=== PATIENT | male | born 1965 | race Caucasian/White ===

== ENCOUNTER 2019-07-21 15:55 | Emergency (ER) | payer BC ==
[2019-07-21] MEDS ORDERED: ONDANSETRON 4 MG/2 ML VIAL ONE (16:14)
[2019-07-21] MEDS ORDERED: KETOROLAC TROMETHAMINE 30 MG/1 ML VIAL ONE (16:14)
[2019-07-21 16:24] VITALS: BMI 36.9
[2019-07-21 16:28] VITALS: BP 128/81; PULSE 79; TEMP 98.4
[2019-07-21 16:28] LABS: BASO % 0.7 % (0-2.0); EOS % 1.1 % (0-4.5); HEMATOCRIT 49.5 % (35.4-49); HEMOGLOBIN 16.5 GM/dl (11.7-16.9); LYMPH % 17.6 % (8-40); MCH 30.9 pg (25.7-33.7); MCHC 33.3 g/dl (32.0-35.9); MEAN CELL VOLUME 92.6 fl (80-96); MEAN PLT VOLUME 7.5 fl (7.5-11.1); MONO % 8.5 % (3.8-10.2); NEUT % 72.1 % (42.8-82.8); PLATELET COUNT 279 K/MM3 (134-434); RBC 5.35 M/mm3 (4.00-5.60); WHITE BLOOD COUNT 9.2 K/mm3 (4.0-10.8)
[2019-07-21 16:49] LABS: ALBUMIN 4.2 g/dl (3.4-5.0); CALCIUM 8.4 mg/dl (8.5-10); CREATININE 1.4 mg/dl (0.55-1.3); POTASSIUM 3.8 mmol/L (3.5-5.1); TOT PROT 6.8 g/dl (6.4-8.2)
[2019-07-21] MEDS ORDERED: ONDANSETRON 4 MG/2 ML VIAL IVPUSH ONE (16:51)
[2019-07-21] MEDS ORDERED: KETOROLAC TROMETHAMINE 30 MG/1 ML VIAL IVPUSH ONE (16:51)
[2019-07-21] MEDS ORDERED: SODIUM CHLORIDE 0.9% 1000 ML INFUS.BAG IV ONE ×2 (16:51→17:06)
--- NOTE | 2019-07-21 16:51 | PDOC ---
Documentation entered by Bhavin Lobato SCRIBE, acting as scribe for Brisa Love DO. Brisa Love DO: This documentation has been prepared by the Luis Alfredo mcclellan Angel, SCRIBE, under my direction and personally reviewed by me in its entirety. I confirm that the documentation accurately reflects all work, treatment, procedures, and medical decision making performed by me. History of Present Illness - General Chief Complaint: Pain, Acute Stated Complaint: LEFT FLANK PAIN Time Seen by Provider: 07/21/19 16:08 History Source: Patient Exam Limitations: No Limitations - History of Present Illness Initial Comments: 07/21/19 16:55 The patient is a 53 year old male with a significant past medical history of kidney stones and Gallbladder removal who presents to the ED with left flank pain and hematuria. The patient states the left flank pain is frequent but this morning it flared up more than usual. The patient reports blood in the urine as well as nausea but no vomiting. The patient does not take any medication at home for the pain. The patient notes the pain has subsided in the ED after being given Toradol. Patient denies any chest pain, SOB, fever/chills or any other symptoms. Allergies: NKDA 07/21/19 16:55 Past History - Past Medical History Allergies/Adverse Reactions: Allergies Allergy/AdvReac Type Severity Reaction Status Date / Time No Known Allergies Allergy Verified 07/21/19 15:55 Home Medications: Ambulatory Orders Ibuprofen [Motrin -] 600 mg PO TID PRN #15 tablet 07/21/19 Oxycodone HCl/Acetaminophen [Percocet 5-325 mg Tablet] 1 tab PO Q6H PRN #6 tablet MDD 4 tabs per day 07/21/19 COPD: No Kidney Stones: Yes (7 YRS AGO) - Surgical History Cholecystectomy: Yes - Psycho Social/Smoking Cessation Hx Smoking History: Never smoked Have you smoked in the past 12 months: No Hx Alcohol Use: Yes (SPECIAL EVENTS) Drug/Substance Use Hx: No Substance Use Type: None Review of Systems - Review of Systems Able to Perform ROS?: Yes Comments:: 07/21/19 16:58 GENERAL/CONSTITUTIONAL: No fever or chills. No weakness. HEAD, EYES, EARS, NOSE AND THROAT: No change in vision. No ear pain or discharge. No sore throat. CARDIOVASCULAR: No chest pain or shortness of breath. RESPIRATORY: No cough, wheezing, or hemoptysis. GASTROINTESTINAL:+ Nausea. vomiting, diarrhea or constipation. GENITOURINARY: + Hematuria. No dysuria, frequency. MUSCULOSKELETAL:+ Left flank pain. No neck or back pain. SKIN: No rash NEUROLOGIC: No headache, vertigo, loss of consciousness, or change in strength/sensation. ENDOCRINE: No increased thirst. No abnormal weight change. HEMATOLOGIC/LYMPHATIC: No anemia, easy bleeding, or history of blood clots. ALLERGIC/IMMUNOLOGIC: No hives or skin allergy. *Physical Exam - Vital Signs Last Vital Signs Temp Pulse Resp BP Pulse Ox 98.4 F 79 18 128/81 96 07/21/19 15:55 07/21/19 15:55 07/21/19 15:55 07/21/19 15:55 07/21/19 15:55 - Physical Exam General Appearance: Yes: Nourished, Appropriately Dressed, Apparent Distress, Moderate Distress HEENT: positive: EOMI, Normal Voice, Other (dry mm) Neck: positive: Supple Respiratory/Chest: positive: Lungs Clear, Normal Breath Sounds. negative: Respiratory Distress Cardiovascular: positive: Regular Rhythm, Regular Rate, S1, S2 Gastrointestinal/Abdominal: positive: Soft, Tenderness (L flank, LLQ, L CVA ttp). negative: Guarding, Rebound Musculoskeletal: positive: CVA Tenderness, CVA Tenderness (L), Decreased Range of Motion, Other (ambulated into the ER) Extremity: positive: Normal Inspection, Normal Range of Motion Integumentary: positive: Normal Color, Dry, Warm Neurologic: positive: Fully Oriented, Alert, Normal Mood/Affect, Other (no focal neuro deficit) ED Treatment Course - LABORATORY CBC & Chemistry Diagram: 07/21/19 16:10 07/21/19 16:10 - ADDITIONAL ORDERS Additional order review: Laboratory Results 07/21/19 16:00 Urine Color Yellow Urine Appearance Clear Urine pH 5.0 Urine Protein Negative Urine Glucose (UA) Negative Urine Ketones Negative Urine Blood 3+ H Urine Nitrite Negative Urine Bilirubin Negative Urine Urobilinogen 0.2 Ur Leukocyte Esterase Negative 07/21/19 16:10 RBC 5.35 MCV 92.6 MCHC 33.3 RDW 12.0 MPV 7.5 Neutrophils % 72.1 Lymphocytes % 17.6 D Monocytes % 8.5 Eosinophils % 1.1 D Basophils % 0.7 Medical Decision Making - Medical Decision Making 07/21/19 16:50 a/p: 53yo male with known hx of kidney stones who passed a stone upon arrival in the ER with acute onset of L flank pain -hasn't passed a stone in over a year -follows with Dr. Spencer from urology -doesn't take meds at home -stopped hydroxyurea and stopped flomax -labs, ua, ct abd/pelvis to eval for hydro -pt arrives acutely in pain, nauseated -will monitor and reassess 07/21/19 16:52 b/l nephrolithiasis 6mm proximal stone with mild hydro cr 1.4 07/21/19 16:53 no elevated wbc blood in urine 07/21/19 17:[address] Spencer 07/21/19 17:[address] Spencer who recommends coming to the office for eval. States to have the patient call tomorrow for an appointment time. 07/21/19 17:59 discussed follow up with dr. spencer dsicussed calling the office tomorrow to schedule appt time answered all questions will give motrin and percocet rx stable for dc to home Discharge - Discharge Information Problems reviewed: Yes Clinical Impression/Diagnosis: Hydronephrosis, Kidney stone on left side Condition: Stable Disposition: HOME - Admission No - Additional Discharge Information Prescriptions: Ibuprofen [Motrin -] 600 mg PO TID PRN #15 tablet PRN Reason: Pain Oxycodone HCl/Acetaminophen [Percocet 5-325 mg Tablet] 1 tab PO Q6H PRN #6 tablet MDD 4 tabs per day PRN Reason: Pain - Follow up/Referral Referrals: Dr. Marcellus Spencer [Other] (Please call the office tomorrow for your appointment time on 07/23/19) - Patient Discharge Instructions Patient Printed Discharge Instructions: DI for Kidney Stones, DI for Hydronephrosis-Adult Additional Instructions: Please call Dr. Spencer tomorrow for your appointment time on . Please go to the [place] office on to see your urologist for follow up. Ple ase take all medications as prescribed. Please return to the ER with any further concerns or complaints. Please take the motrin with food or milk. Please only take the percocet for extreme pain and please do not drive or operate heavy machinery while taking the medication. Please also follow up with your PMD. - Post Discharge Activity
[2019-07-21 17:35] LABS: URIC ACID CRYSTALS 1+ /hpf (NONE SEEN)
[2019-07-21 17:36] LABS: TRIPLE PHOSPHATE CRYSTAL FEW /hpf (NONE SEEN)
== END 2019-07-21 18:24 | disposition home or self-care (01) ==
LOC: FER 15:55
PROC: 3E0333Z Introduction of Anti-inflammatory into Peripheral Vein, Percutaneous Approach (ICD-10-PCS; principal; 2019-07-21)
PROC: 3E033GC Introduction of Other Therapeutic Substance into Peripheral Vein, Percutaneous Approach (ICD-10-PCS; 2019-07-21)
PROC: 3E0337Z Introduction of Electrolytic and Water Balance Substance into Peripheral Vein, Percutaneous Approach (ICD-10-PCS; 2019-07-21)
DX: N13.2 Hydronephrosis with renal and ureteral calculous obstruction (principal)
CPT/HCPCS: 36415; 74176-TC; 80053; 81003; 81015; 85025; 87086; 99285-25; J7030

== ENCOUNTER 2021-05-19 09:55 | Emergency (ER) | payer BC ==
[2021-05-19 10:04] VITALS: BP 144/96; PULSE 80; TEMP 98.6; BMI 37.6
== END 2021-05-19 10:30 | disposition home or self-care (01) ==
LOC: FER 09:55
DX: N50.1 Vascular disorders of male genital organs (principal)
CPT/HCPCS: 99283-25

== ENCOUNTER 2021-09-20 12:06 | Emergency (ER) | payer BC ==
[2021-09-20 12:46] VITALS: BP 140/67; PULSE 76; TEMP 98; BMI 32.5
== END 2021-09-20 12:47 | disposition home or self-care (01) ==
LOC: FER 12:06
DX: H61.23 Impacted cerumen, bilateral (principal)
CPT/HCPCS: 99281-25